=== PATIENT | male | born 1985 | race Caucasian/White ===

== ENCOUNTER 2018-03-12 10:48 | Emergency (ER) | payer OTHER ==
[~2018-03-12] VITALS: Ht 182.9 cm; Wt 192.8 kg
[2018-03-12] MEDS ORDERED: [UNRECOGNIZED DRUG - REMARK] (11:17)
[2018-03-12] MEDS ORDERED: [UNRECOGNIZED DRUG - OTHER] (11:17)
[2018-03-12] MEDS ORDERED: UNICOMPLEX M TA1 TA1 PO (11:18)
[2018-03-12 12:27] VITALS: BP 177/102
[2018-03-12] MEDS ORDERED: NORCO 5-325 TA1 EACH PO (13:01)
[2018-03-12] MEDS ORDERED: MOBIC7.5 MG PO (13:18)
== END 2018-03-12 13:26 | disposition home or self-care (01) ==
LOC: ER 10:48
DX: M25.561 Pain in right knee (principal); M79.661 Pain in right lower leg; I10 Essential (primary) hypertension